=== PATIENT | male | born 1950 | race Caucasian/White ===

== ENCOUNTER 2018-07-04 17:34 | Emergency (ER) | payer OTHER, BC ==
[2018-07-04] MEDS ORDERED: DERMABOND SKIN ADHESIVE TOP ONE (18:18)
--- NOTE | 2018-07-04 18:23 | ER ---
Nurse's Notes [facility] Name: Rashawn Bernard Age: 67 yrs Sex: Male : 1950 Arrival Date: 07/04/2018 Time: 17:37 Bed 14 Private MD: Diagnosis: Forehead Laceration;Superficial injury of head Presentation: 07/04 17:44 Presenting complaint: Patient states: about 3-4 hours ago i hit my head on part of the tw2 motorhome getting ready to go out of town, my tetanus is up to date, i was just wondering if it can be closed with a stitch or not. Transition of care: patient was not received from another setting of care. Complicating Factors: There are no complicating factors for this patient. Onset of symptoms was July 04, 2018. Risk Assessment: Do you want to hurt yourself or someone else? Patient reports no desire to harm self or others. Initial Sepsis Screen: Does the patient meet any 2 criteria? No. Patient's initial sepsis screen is negative. Does the patient have a suspected source of infection? No. Patient's initial sepsis screen is negative. Care prior to arrival: None. 17:44 Method Of Arrival: Ambulatory tw2 17:44 Acuity: MELODY 4 tw2 Triage Assessment: 17:45 General: Appears in no apparent distress. well groomed, Behavior is calm, cooperative, tw2 appropriate for age. Pain: Complains of pain in forehead. Cardiovascular: Patient's skin is warm and dry. Respiratory: Respiratory effort is even, unlabored, Respiratory pattern is regular, symmetrical. Injury Description: Laceration sustained to forehead is clean, 0.5 to 2.5 cm long, not bleeding, was sustained 2-4 hours ago. is bleeding no active bleeding noted. Historical: - Allergies: 17:47 No Known Allergies; tw2 - Home Meds: 17:47 "a bunch but nothing that has anything to do with this" [Active]; tw2 - PMHx: 17:47 "a lot but shouldnt effect this"; tw2 - Immunization history:: Last tetanus immunization: < 5 years ago. - Social history:: Smoking status: . - Ebola Screening: : Patient denies travel to an Ebola-affected area in the 21 days before illness onset. Screenin:48 Abuse screen: Denies threats or abuse. Nutritional screening: No deficits noted. tw2 Tuberculosis screening: No symptoms or risk factors identified. Fall Risk None identified. Assessment: 18:07 General: Appears in no apparent distress. well groomed, Behavior is calm, cooperative, tw2 appropriate for age. Pain: Complains of pain in forehead. Cardiovascular: Patient's skin is warm and dry. Respiratory: Airway is patent Respiratory effort is even, unlabored, Respiratory pattern is regular, symmetrical. Musculoskeletal: Range of motion: intact in all extremities. Injury Description: Laceration sustained to forehead is jagged, 0.5 to 2.5 cm long, not bleeding, was sustained 2-4 hours ago. is bleeding no active bleeding noted. 18:30 Reassessment: Patient appears in no apparent distress at this time. No changes from tw2 previously documented assessment. Patient is alert, oriented x 3, equal unlabored respirations, skin warm/dry/pink. Vital Signs: 17:46 BP 154 / 98; Pulse 95; Resp 17; Temp 98.1(O); Pulse Ox 97% on R/A; Weight 79.38 kg (R); tw2 Height 5 ft. 6 in. (167.64 cm); Pain 2/10; 17:46 Body Mass Index 28.25 (79.38 kg, 167.64 cm) tw2 ED Course: 17:37 Patient arrived in ED. rg4 17:42 Bed in low position. Call light in reach. Pulse ox on. NIBP on. tw2 17:44 Sandra Aaron, RN is Primary Nurse. tw2 17:45 Triage completed. tw2 17:45 Arm band placed on. tw2 17:51 Tyler Stahl PA is PHCP. [facility] 17:51 Miko Siddiqui MD is Attending Physician. [facility] 18:08 Wound care: located on forehead was cleaned with Hibiclens, irrigated with normal tw2 saline, Patient tolerated well. 18:29 No provider procedures requiring assistance completed. Patient did not have IV access tw2 during this emergency room visit. Administered Medications: No medications were administered Outcome: 18:22 Discharge ordered by . [facility] 18:29 Discharged to home ambulatory. tw2 18:29 Condition: stable 18:29 Discharge instructions given to patient, significant other, Instructed on discharge instructions, follow up and referral plans. wound care, Demonstrated understanding of instructions, follow-up care, wound care. 18:30 Patient left the ED. tw2 Signatures: Tyler Stahl PA PA jmm Wise, Tara, RN RN tw2 rBee Medeiros rg4 Corrections: (The following items were deleted from the chart) 18:07 17:46 BP 154 / 98; Pulse 95bpm; Resp 17bpm; Pulse Ox 97% RA; 79.38 kg Reported; Height tw2 5 ft. 6 in.; BMI: 28.2; Pain 2/10; tw2
--- NOTE | 2018-07-04 18:23 | EDPHYS ---
Physician Documentation [facility] Name: Rashawn Bernard Age: 67 yrs Sex: Male : 1950 Arrival Date: 07/04/2018 Time: 17:37 Bed 14 Private MD: ED Physician Miko Siddiqui HPI: 07/04 17:59 This 67 yrs old Male presents to ER via Ambulatory with complaints of jmm Laceration To Forehead. 17:59 Onset: The symptoms/episode began/occurred acutely, just prior to arrival. This is a 67 jmm year old male with a history of htn, hlp that presents to the ED with a laceration to his forehead. Patient states hitting his head against a metal rail attached to his motor home while bending down. Denies vomiting. Patient does take aspirin. . Historical: - Allergies: 17:47 No Known Allergies; tw2 - Home Meds: 17:47 "a bunch but nothing that has anything to do with this" [Active]; tw2 - PMHx: 17:47 "a lot but shouldnt effect this"; tw2 - Immunization history:: Last tetanus immunization: < 5 years ago. - Social history:: Smoking status: . - Ebola Screening: : Patient denies travel to an Ebola-affected area in the 21 days before illness onset. ROS: 17:59 Constitutional: Negative for fever, chills, and weight loss, Cardiovascular: Negative jmm for chest pain, palpitations, and edema, Respiratory: Negative for shortness of breath, cough, wheezing, and pleuritic chest pain. 17:59 Skin: Positive for laceration(s). 17:59 All other systems are negative. Exam: 17:59 Constitutional: This is a well developed, well nourished patient who is awake, alert, jmm and in no acute distress. 17:59 Eyes: EOMI, no conjunctival erythema appreciated ENT: Moist Mucus Membranes Neck: Trachea midline, Supple Chest/axilla: Normal chest wall appearance and motion. Cardiovascular: Regular rate and rhythm. No edema appreciated Respiratory: Normal respirations, no respiratory distress appreciated Abdomen/GI: Non distended, soft Back: Normal ROM 17:59 Head/face: 1 cm laceration noted to the forehead. 17:59 Skin: 1 cm laceration noted to the forehead. 17:59 Neuro: Orientation: is normal, Mentation: is normal, Memory: is normal, Gait: is steady. 17:59 Psych: Behavior/mood is pleasant, cooperative. Vital Signs: 17:46 BP 154 / 98; Pulse 95; Resp 17; Temp 98.1(O); Pulse Ox 97% on R/A; Weight 79.38 kg (R); tw2 Height 5 ft. 6 in. (167.64 cm); Pain 2/10; 17:46 Body Mass Index 28.25 (79.38 kg, 167.64 cm) tw2 Laceration: 18:21 Wound Repair of 1cm ( 0.4in ) subcutaneous laceration to forehead. Distal jmm neuro/vascular/tendon intact. Wound prep: Simple cleansing with hibiclenz by nurse. Skin closed with 1-0 Adhesive skin closure using Dermabond. Patient tolerated well. MDM: 17:[address] [facility] 18:21 Data reviewed: vital signs, nurses notes. Counseling: I had a detailed discussion with bart the patient and/or guardian regarding: the historical points, exam findings, and any diagnostic results supporting the discharge/admit diagnosis, the need for outpatient follow up, to return to the emergency department if symptoms worsen or persist or if there are any questions or concerns that arise at home. 18:21 ED course: Patient given wound infection and head injury return precautions. Patient m and understood and agrees with the plan of care. . 07/04 18:00 Order name: Wound Care; Complete Time: 18:04 [facility] 07/04 18:05 Order name: Dermabond; Complete Time: 18:29 tw2 Administered Medications: No medications were administered Disposition: 07/04/18 18:22 Discharged to Home. Impression: Forehead Laceration, Superficial injury of head. - Condition is Stable. - Discharge Instructions: Head Injury, Adult, Facial Laceration. - Medication Reconciliation Form, Thank You Letter, Antibiotic Education, Prescription Opioid Use form. - Follow up: Private Physician; When: 5 - 6 days; Reason: Recheck today's complaints, Continuance of care, Re-evaluation by your physician. Addendum: 07/08/2018 08:26 Co-signature as Attending Physician, Miko Siddiqui MD I agree with the assessment and c vazquez plan of care. Signatures: Miko Siddiqui MD MD cha Mickail, Joel, PA PA Sandra Morris, RN RN tw2 Corrections: (The following items were deleted from the chart) 07/04 18:30 18:22 07/04/2018 18:22 Discharged to Home. Impression: Forehead Laceration; Superficial tw2 injury of head. Condition is Stable. Forms are Medication Reconciliation Form, Thank You Letter, Antibiotic Education, Prescription Opioid Use. Follow up: Private Physician; When: 5 - 6 days; Reason: Recheck today's complaints, Continuance of care, Re-evaluation by your physician. bart
== END 2018-07-04 18:30 | disposition home or self-care (01) ==
LOC: ER 17:34
PROC: 0JQ10ZZ Repair Face Subcutaneous Tissue and Fascia, Open Approach (ICD-10-PCS; principal; 2018-07-04)
DX: S01.81XA Laceration without foreign body of other part of head, initial encounter (principal); W22.8XXA Striking against or struck by other objects, initial encounter; Y93.89 Activity, other specified; Y92.009 Unspecified place in unspecified non-institutional (private) residence as the place of occurrence of the external cause
CPT/HCPCS: 99283; 12011; G0168